=== PATIENT | male | born 1955 | race Two or more races ===

== ENCOUNTER 2018-06-18 11:24 | Outpatient (CLI) | payer OTHER ==
[~2018-06-18 11:24] MED LIST: AVANDIA4 MG PO; EFFEXOR25 MG PO; METFORMIN HCL500 MG PO; XANAX XR1 MG PO
== END 2018-06-18 15:40 | disposition home or self-care (01) ==
LOC: NUCLEAR 11:24
DX: M81.0 Age-related osteoporosis without current pathological fracture (principal)

== ENCOUNTER 2018-06-24 13:28 | Outpatient (CLI) | payer OTHER | END 2018-06-24 13:40 | disposition home or self-care (01) | LOC: RAD 501 13:28 | DX: M79.671 Pain in right foot (principal); M79.672 Pain in left foot; M17.0 Bilateral primary osteoarthritis of knee; M25.571 Pain in right ankle and joints of right foot; M25.572 Pain in left ankle and joints of left foot ==

== ENCOUNTER 2018-07-17 12:42 | Outpatient (CLI) | payer OTHER | END 2018-07-17 14:00 | disposition home or self-care (01) | LOC: TOM 12:42 | DX: J44.9 Chronic obstructive pulmonary disease, unspecified (principal); Z87.891 Personal history of nicotine dependence ==

== ENCOUNTER 2021-06-07 14:36 | Outpatient (CLI) | payer OTHER | END 2021-06-07 14:44 | disposition home or self-care (01) | LOC: RAD 14:36 | PROVIDERS: ATTEND Orthopaedic Surgery | DX: M54.2 Cervicalgia (principal); M25.571 Pain in right ankle and joints of right foot ==

== ENCOUNTER 2021-06-12 12:32 | Outpatient (CLI) | payer OTHER | END 2021-06-12 14:19 | disposition home or self-care (01) | LOC: RAD 12:32 | PROVIDERS: ATTEND Orthopaedic Surgery | DX: M54.59 Other low back pain (principal) ==

== ENCOUNTER 2021-08-24 13:29 | Outpatient (CLI) | payer OTHER | END 2021-08-24 13:38 | disposition home or self-care (01) | LOC: MRI 13:29 | PROVIDERS: ATTEND Orthopaedic Surgery | DX: M51.37 Other intervertebral disc degeneration, lumbosacral region (principal); M54.59 Other low back pain | CPT/HCPCS: 72148 ==

== ENCOUNTER 2022-02-07 06:32 | Outpatient (CLI) | payer OTHER | END 2022-02-07 06:33 | disposition home or self-care (01) | LOC: LAB 06:32 | PROVIDERS: ATTEND Orthopaedic Surgery | DX: E55.9 Vitamin D deficiency, unspecified (principal); M85.9 Disorder of bone density and structure, unspecified; E21.3 Hyperparathyroidism, unspecified; E88.9 Metabolic disorder, unspecified; M81.8 Other osteoporosis without current pathological fracture; E56.1 Deficiency of vitamin K ==

== ENCOUNTER 2022-02-07 07:12 | Outpatient (CLI) | payer OTHER | END 2022-02-07 07:18 | disposition home or self-care (01) | LOC: RX STUDY 07:12 | DX: R13.14 Dysphagia, pharyngoesophageal phase (principal) ==

== ENCOUNTER 2025-03-11 13:32 | Inpatient (IN) | payer OTHER ==
[~2025-03-11] VITALS: Ht 152.4 cm; Wt 108.9 kg
--- NOTE | 2025-03-11 14:05 | NUR ---
PACIENTE, S/V EN PARAMETROS NORMALES, POR AMBULANCIA, UBICADA EN CAMA 10, TRAUMA POR CAIDA EN CADERA Y MANO DERECHA EN MYERS RESIDENCIA , SE MANTIENE EN OBSERVACION ENB ESPERA SER EVALUADO POR MD. SE REALIZA DXT 107 MG/DL.
[2025-03-11] MEDS ORDERED: MORPHINE SULFATE 4 MG/ML VIAL IV ONE (14:15)
[2025-03-11] MEDS ORDERED: 0.9 % SODIUM CHLORIDE 1,000 ML IV SCH ×2 (14:15→19:45)
--- NOTE | 2025-03-11 14:25 | NUR ---
PTE ES ORIENTADO POR ZEYNEP MAGALLANES SOBR ETX MEDICO EL CUAL REFIERE ENTENDER Y ACEPTAR. SE COLOCA H/L EN BRAZO ASIM, SE RECOLECTAN MUESTRAS DE LAB Y SE ADMISNITRAN MEDICAMENTOS MARIANO ORDEN MEDICA BAJO MEDIDAS ASEPTICAS.
[2025-03-11 15:07] LABS: BASO % 0.9 % (0.1-1.2); EOS # 0.36 (0.04-0.54); EOS % 3.0 % (0.7-7.0); LYMPH # 2.19 (1.18-3.74); LYMPH % 18.2 % (19.3-53.1); MEAN PLATELET VOLUME 10.60 fl (9.4-12.4); MONO # 1.28 (0.24-0.82); MONO % 10.6 % (4.7-12.5); NEUT # 7.91 (1.56-6.13); NEUT % 65.8 % (34.0-71.1); RED CELL DISTRIBUTION WIDTH 13.7 % (11.6-14.4)
[2025-03-11 15:18] LABS: BUN CREA RATIO 17.0 (7.0-25.0); CREATININE SERUM 1.47 mg/dL (0.70-1.30); GFR 47.5; GLUCOSE FASTING 124.0 mg/dL (65-100); OSMOLALITY SERUM 283.0 MOSM/KG (275-295)
[2025-03-11 15:40] LABS: COVID-19 AG NEGATIVE (NEGATIVE)
[2025-03-11 16:02] LABS: INR 1.07
[2025-03-11] MEDS ORDERED: MORPHINE SULFATE 4 MG/ML CARTRIDGE IV PRN (18:45)
[2025-03-11] MEDS ORDERED: CEFAZOLIN SODIUM 1,000 MG in DEXTROSE 5 % IN WATER 50 ML IV SCH (19:36)
[2025-03-11] MEDS ORDERED: INSULIN LISPRO 1,000 UNIT/10 ML UNITS SUBCUTANEO PRN (19:45)
[2025-03-11] MEDS ORDERED: hydrALAZINE HCL 20 MG VIAL IV PRN (19:45)
[2025-03-11] MEDS ORDERED: DEXTROSE 50 % IN WATER 0.5 G/ML VIAL IV PRN (19:45)
[2025-03-11] MEDS ORDERED: CEFAZOLIN SODIUM 1,000 MG VIAL ONE (20:33)
[2025-03-11 21:57] LABS: INR 1.07
[2025-03-12] VITALS: BP 129/71; O2SAT 94
[2025-03-12 01:16] LABS: URINE APPEARANCE Clear; URINE BILIRRUBIN Negative (NEGATIVE); URINE BLOOD Negative; URINE COLOR Yellow; URINE KETONE Negative (NEGATIVE); URINE LEUKOCYTE Negative; URINE NITRATE Negative; URINE PROTEIN Negative (NEGATIVE); URINE UROBILINOGEN 0.2 E.U./dl
[2025-03-12 01:30] LABS: URINE BACTERIA 1.2 uL (0.0-1933); URINE CAST 0.00 uL (0.0-1.40); URINE EPITHELIAL CELLS 0.7 uL (0.0-38.8); URINE GLUCOSE >=1000 MG/DL (NEGATIVE); URINE RBC 1.7 uL (0.0-20.8); URINE WBC 0.1 uL (0.0-23.2)
[2025-03-12 08:30] VITALS: BP 131/74
[2025-03-12] MEDS ORDERED: MORPHINE SULFATE 8 MG,MORPHINE SULFATE 2 MG IV PRN (11:00)
[2025-03-12] MEDS ORDERED: MORPHINE SULFATE 4 MG/ML CARTRIDGE IV PRN (11:15)
[2025-03-12] MEDS ORDERED: TRAMADOL HCL 50 MG TABLET PO PRN (13:15)
[2025-03-12 16:08] VITALS: BP 163/76; O2SAT 94
[2025-03-12] MEDS ORDERED: CIPROFLOXACIN IN 5 % DEXTROSE 200 ML IV SCH (17:00)
[2025-03-12] MEDS ORDERED: ACETAMINOPHEN 500 MG GEL..CAP PO SCH (18:00)
[2025-03-12 20:00] VITALS: BP 176/77; O2SAT 94
[2025-03-12 21:00] VITALS: BP 179/74
[2025-03-13 00:23] VITALS: BP 152/75; O2SAT 96
[2025-03-13 09:57] VITALS: BP 150/75; O2SAT 93
[2025-03-13 16:00] VITALS: BP 123/55; O2SAT 95
[2025-03-13] MEDS ORDERED: ENOXAPARIN SODIUM 40 MG/0.4 ML SYRINGE SUBCUTANEO ONE (18:15)
[2025-03-13 20:44] LABS: INR 1.04
[2025-03-14 01:34] VITALS: BP 147/87; O2SAT 98
[2025-03-14 08:48] VITALS: BP 121/67; O2SAT 92
[2025-03-14 16:00] VITALS: BP 115/65; O2SAT 95
[2025-03-14] MEDS ORDERED: MORPHINE SULFATE 4 MG/ML CARTRIDGE IV PRN (17:00)
[2025-03-15 03:13] VITALS: BP 126/67; O2SAT 94
[2025-03-15] MEDS ORDERED: BUPIVACAINE HCL/MPF 0.5% 30ML VIAL ONE (07:45)
[2025-03-15] MEDS ORDERED: CHLORHEXIDINE GLUCONATE 120 ML BOTTLE TOP ONE (07:45)
[2025-03-15] MEDS ORDERED: VANCOMYCIN HCL 1,000 MG VIAL ONE (08:38)
[2025-03-15] MEDS ORDERED: VANCOMYCIN HCL 1,000 MG VIAL IV SCH (09:15)
[2025-03-15] MEDS ORDERED: hydrALAZINE HCL 20 MG VIAL IV ONE (09:30)
[2025-03-15] MEDS ORDERED: ISOPROPYL ALCOHOL 30 ML OUNCE TOP ONE (11:00)
[2025-03-15] MEDS ORDERED: TRANEXAMIC ACID 100MG/1ML (1000MG) AMPUL IV ONE (12:15)
[2025-03-15] MEDS ORDERED: MEPERIDINE HCL/PF 50 MG/ML VIAL IM PRN (13:00)
[2025-03-15] MEDS ORDERED: TRAMADOL HCL 50 MG TABLET PO PRN (13:00)
[2025-03-15] MEDS ORDERED: SODIUM CHLORIDE 0.45 % 1,000 ML IV SCH (13:00)
[2025-03-15] MEDS ORDERED: ONDANSETRON 4 MG TAB.RAPDIS PO PRN (13:00)
[2025-03-15] MEDS ORDERED: PROMETHAZINE HCL 50 MG/ML AMPUL IM PRN (13:00)
[2025-03-15] MEDS ORDERED: ONDANSETRON HCL 2 MG/ML VIAL IV PRN (13:00)
[2025-03-15] MEDS ORDERED: MORPHINE SULFATE 4 MG/ML VIAL IV ONE (16:25)
[2025-03-15] MEDS ORDERED: PANTOPRAZOLE SODIUM 40 MG TABLET.DR PO SCH (17:00)
[2025-03-15 19:01] VITALS: BP 123/52; O2SAT 95
[2025-03-16 00:34] VITALS: BP 125/60; O2SAT 95
[2025-03-16 06:49] LABS: BASO % 0.5 % (0.1-1.2); EOS # 0.10 (0.04-0.54); EOS % 0.8 % (0.7-7.0); LYMPH # 1.73 (1.18-3.74); LYMPH % 13.5 % (19.3-53.1); MEAN PLATELET VOLUME 11.10 fl (9.4-12.4); MONO # 2.45 (0.24-0.82); NEUT # 8.28 (1.56-6.13); NEUT % 64.9 % (34.0-71.1); RED CELL DISTRIBUTION WIDTH 13.3 % (11.6-14.4)
[2025-03-16 07:11] LABS: MONO % 19.2 % (4.7-12.5)
[2025-03-16 08:00] VITALS: BP 142/65; O2SAT 96
[2025-03-16] MEDS ORDERED: RIVAROXABAN 10 MG TAB PO SCH (09:00)
[2025-03-16 13:16] LABS: COVID-19 AG NEGATIVE (NEGATIVE)
[2025-03-16] MEDS ORDERED: IRON FUM,PS/FOLIC/BCOMP,C NO.9 1 CAP CAPSULE PO NR (13:20)
[2025-03-16 16:00] VITALS: BP 130/63; O2SAT 94
[2025-03-17 01:12] VITALS: BP 132/65; O2SAT 96
[2025-03-17 09:00] VITALS: BP 112/60; O2SAT 95
[2025-03-17] MEDS ORDERED: IRON FUM,PS/FOLIC/BCOMP,C NO.9 1 CAP CAPSULE PO SCH (09:00)
[2025-03-17 16:00] VITALS: BP 100/64; O2SAT 93
[2025-03-17 19:33] VITALS: BP 122/61; O2SAT 98
[2025-03-17 19:54] LABS: BASO % 0.3 % (0.1-1.2); EOS # 0.23 (0.04-0.54); EOS % 2.4 % (0.7-7.0); LYMPH # 1.52 (1.18-3.74); LYMPH % 16.2 % (19.3-53.1); MEAN PLATELET VOLUME 11.00 fl (9.4-12.4); MONO # 1.28 (0.24-0.82); NEUT # 6.19 (1.56-6.13); NEUT % 65.9 % (34.0-71.1); RED CELL DISTRIBUTION WIDTH 13.1 % (11.6-14.4)
[2025-03-17 20:00] LABS: MONO % 13.6 % (4.7-12.5)
[2025-03-17] MEDS ORDERED: TRAMADOL HCL 50 MG TABLET PO PRN (22:00)
[2025-03-18 02:02] VITALS: BP 121/63; O2SAT 95
[2025-03-18 08:00] VITALS: BP 125/69; O2SAT 95
[2025-03-18 16:00] VITALS: BP 90/37; O2SAT 97
[2025-03-18 18:50] VITALS: BP 108/60; O2SAT 96
[2025-03-19 02:23] VITALS: BP 104/64; O2SAT 95
[2025-03-19 08:00] VITALS: BP 126/79; O2SAT 98
[2025-03-19 16:00] VITALS: BP 126/67; O2SAT 95
[2025-03-20 01:38] VITALS: BP 116/73; O2SAT 95
[2025-03-20] MEDS ORDERED: TRAMADOL HCL 50 MG TABLET PO PRN (01:45)
[2025-03-20 04:55] LABS: BASO % 1.1 % (0.1-1.2); EOS # 0.38 (0.04-0.54); EOS % 3.7 % (0.7-7.0); LYMPH # 2.52 (1.18-3.74); LYMPH % 24.5 % (19.3-53.1); MEAN PLATELET VOLUME 11.50 fl (9.4-12.4); MONO # 1.42 (0.24-0.82); MONO % 13.8 % (4.7-12.5); NEUT # 5.12 (1.56-6.13); NEUT % 49.8 % (34.0-71.1); RED CELL DISTRIBUTION WIDTH 13.4 % (11.6-14.4)
[2025-03-20 08:00] VITALS: BP 152/67; O2SAT 95
== END 2025-03-20 14:41 | DRG 469 ==
LOC: ER 13:32 → SURH 19:53
PROVIDERS: Emergency Medicine; General Practice; Orthopaedic Surgery; ADMIT Internal Medicine; ATTEND Internal Medicine
PROC: 0QQ40ZZ Repair Right Acetabulum, Open Approach (ICD-10-PCS; 2025-03-15)
PROC: 0PSH04Z Reposition Right Radius with Internal Fixation Device, Open Approach (ICD-10-PCS; 2025-03-15)
PROC: 0L830ZZ Division of Right Upper Arm Tendon, Open Approach (ICD-10-PCS; 2025-03-15)
PROC: 0LN50ZZ Release Right Lower Arm and Wrist Tendon, Open Approach (ICD-10-PCS; 2025-03-15)
PROC: 0PUH0JZ Supplement Right Radius with Synthetic Substitute, Open Approach (ICD-10-PCS; 2025-03-15)
PROC: 0SRR01Z Replacement of Right Hip Joint, Femoral Surface with Metal Synthetic Substitute, Open Approach (ICD-10-PCS; principal; 2025-03-15 07:00)
PROC: 02HV33Z Insertion of Infusion Device into Superior Vena Cava, Percutaneous Approach (ICD-10-PCS; 2025-03-19)
PROC: B548ZZA Ultrasonography of Superior Vena Cava, Guidance (ICD-10-PCS; 2025-03-19)
PROC: 30243N1 Transfusion of Nonautologous Red Blood Cells into Central Vein, Percutaneous Approach (ICD-10-PCS; 2025-03-19)
DX: S52.591A Other fractures of lower end of right radius, initial encounter for closed fracture (principal); S72.031A Displaced midcervical fracture of right femur, initial encounter for closed fracture; M65.4 Radial styloid tenosynovitis [de Quervain]; M24.531 Contracture, right wrist; D64.89 Other specified anemias; M12.531 Traumatic arthropathy, right wrist; I10 Essential (primary) hypertension; E11.9 Type 2 diabetes mellitus without complications; W18.09XA Striking against other object with subsequent fall, initial encounter; Y93.01 Activity, walking, marching and hiking; Y92.009 Unspecified place in unspecified non-institutional (private) residence as the place of occurrence of the external cause; Z88.6 Allergy status to analgesic agent; Z88.0 Allergy status to penicillin; Z91.013 Allergy to seafood